=== PATIENT | male | born 1960 | race Caucasian/White ===

== ENCOUNTER 2023-09-07 16:24 | Emergency (ER) | payer MEDICARE, MEDICAID, SELFPAY ==
[2023-09-07 16:28] VITALS: PULSE 97; RESP 16; TEMP 36.6; O2SAT 92; BMI 18.3
[2023-09-07 16:40] VITALS: BP 110/62
--- NOTE | 2023-09-07 16:42 | ED_ITS ---
HPI - Fall General Chief Complaint: Head Injury Stated Complaint: Head Injury from fall Time Seen by Provider: 09/07/23 16:26 Source: caregiver Mode of arrival: Wheelchair Limitations: no limitations History of Present Illness HPI Narrative: Patient is a 62-year-old male with a history of spinal cord injury and developmental delay who is nonverbal brought in by his caregiver from the [facility] where he is a resident for evaluation of multiple falls today. Caregiver provides the entire history. He states that the patient is at his mental baseline. He does have a history of frequent falls as he has issues walking and with his balance. He had 2 falls earlier today where he was essentially lowered to the ground and had no evidence of injury. He was attempting to get on a bus when he fell backward onto concrete hitting his head. He had no loss of consciousness. Caregivers were concerned because the patient seemed less willing to ambulate after the injury. He has contractures of the extremities, he does not take blood thinners. Caregiver states he is at his mental baseline at this time and does not seem to be acting inappropriately. Related Data Allergies Allergy/AdvReac Type Severity Reaction Status Date / Time aspirin Allergy Verified 09/07/23 16:34 Review of Systems ROS Constitutional Denies: fever or chills Ears, nose, mouth, and throat Denies: nasal congestion Respiratory Denies: shortness of breath Gastrointestinal Denies: vomiting Neurological Reports: weakness in extremities and lack of coordination; Denies: behavioral changes Hematologic/Lymphatic Denies: easy bleeding Allergic/Immunologic Denies: hives Exam Narrative Exam Narrative: Gen.: Awake, alert, in no distress Head: Normocephalic, Small area of swelling to the left posterior scalp, no abrasions or lacerations noted. ENT: Moist mucous membranes; No evidence of facial injury or epistaxis Respiratory: No respiratory distress Back: Abrasion to the left thoracic back, no obvious deformity of the spine Gastrointestinal: Abdomen is soft, nondistended and nontender to palpation; Pelvis is stable Extremities: Arms and legs are contracted, no obvious injury Psych: Normal mood and affect Neuro: Patient chewing on a washcloth which is his baseline Skin: Warm, dry, intact Constitutional Vital Signs, click to edit/add: Last Vital Signs Temp 98 F 09/07/23 16:28 Pulse 97 H 09/07/23 16:28 Resp 16 09/07/23 16:28 BP 110/62 09/07/23 16:40 Pulse Ox 92 L 09/07/23 16:28 Course Vital Signs Vital signs: Vital Signs Temperature 98 F 09/07/23 16:28 Pulse Rate 97 H 09/07/23 16:28 Respiratory Rate 16 09/07/23 16:28 Pulse Oximetry 92 L 09/07/23 16:28 Temperature 98 F 09/07/23 16:28 Pulse Rate 97 H 09/07/23 16:28 Respiratory Rate 16 09/07/23 16:28 Blood Pressure 110/62 09/07/23 16:40 Pulse Oximetry 92 L 09/07/23 16:28 MDM - Fall MDM Narrative Medical decision making narrative: Patient sent for CTs of the head, C-spine, T-spine, L-spine as well as x-rays of the pelvis. These Show motion artifact but no evidence of acute abnormalities other than age-indeterminate fractures of T1 and T2 with vertebral height preserved. I discussed this with the patient's caregiver. He is requesting Motrin and Tylenol orders as needed for pain. Follow-up with PCP and return to the ER if symptoms change or worsen. Medical Records Attestation: I reviewed the patient's medical records. Imaging Data CT scan - head: Attestation: I have reviewed the pertinent imaging results. Radiologist's impression: ITS Impressions Cervical Spine CT 09/07/23 17:20 IMPRESSION: 1. No acute intracranial abnormalities within the limitations of the motion artifact. 2. T1 and T2 superior endplate compression fractures with mild height loss are age indeterminate, correlate clinically. 3. No other acute thoracic or lumbar spine abnormalities 4. No definite acute cervical spine abnormalities although the exam is essentially nondiagnostic due to the motion artifact. Consider repeat exam with clinical concern for cervical spine fracture. Electronically authenticated by: MARTY HANSEN Date: 09/07/2023 17:[address] 09/07/23 17:20 IMPRESSION: 1. No acute intracranial abnormalities within the limitations of the motion artifact. 2. T1 and T2 superior endplate compression fractures with mild height loss are age indeterminate, correlate clinically. 3. No other acute thoracic or lumbar spine abnormalities 4. No definite acute cervical spine abnormalities although the exam is essentially nondiagnostic due to the motion artifact. Consider repeat exam with clinical concern for cervical spine fracture. Electronically authenticated by: MARTY HANSEN Date: 09/07/2023 17:[address] 09/07/23 17:20 IMPRESSION: 1. No acute intracranial abnormalities within the limitations of the motion artifact. 2. T1 and T2 superior endplate compression fractures with mild height loss are age indeterminate, correlate clinically. 3. No other acute thoracic or lumbar spine abnormalities 4. No definite acute cervical spine abnormalities although the exam is essentially nondiagnostic due to the motion artifact. Consider repeat exam with clinical concern for cervical spine fracture. Electronically authenticated by: MARTY HANSEN Date: 09/07/2023 17:43 Pelvis X-Ray 09/07/23 17:20 IMPRESSION: No acute osseous abnormality. Electronically authenticated by: GERTRUDE RAM Date: 09/07/2023 17:[address] 09/07/23 17:20 IMPRESSION: 1. No acute intracranial abnormalities within the limitations of the motion artifact. 2. T1 and T2 superior endplate compression fractures with mild height loss are age indeterminate, correlate clinically. 3. No other acute thoracic or lumbar spine abnormalities 4. No definite acute cervical spine abnormalities although the exam is essentially nondiagnostic due to the motion artifact. Consider repeat exam with clinical concern for cervical spine fracture. Electronically authenticated by: MARTY HANSEN Date: 09/07/2023 17:43 Discharge Plan Discharge Chief Complaint: Head Injury Clinical Impression: Closed head injury, Compression fracture of thoracic vertebra, Fall Patient Disposition: Home, Self-Care Time of Disposition Decision: 18:01 Condition: Good Instructions: Vertebral Compression Fracture (ED), Head Injury (ED) Stand Alone Forms: Portal Instructions Referrals: ENOC VILLALPANDO [Primary Care Provider] - 1 week Discharge Date/Time: 09/07/23 18:15
--- NOTE | 2023-09-07 17:20 | CT_ITS ---
[address] [address] Patient Name: MICHAEL GUZMÁN MRN: [id number] date: 1960 Sex: M Assigned Patient Location: ER Current Patient Location: Accession/Order Number: [id number] Exam Date: 09/07/2023 17:00 Report Date: 09/07/2023 17:43 At the request of: ABNER BOSS Procedure: CT thoracic spine wo con EXAM: CT scan of the head without contrast. CT scan of the cervical spine without contrast. CT scan of the thoracic spine without contrast. CT scan of the lumbar spine without contrast. Dose reduction technique used: Automated exposure control and/or adjustment of the mA and/or kV according to patient size and/or use of iterative reconstruction technique. REASON FOR EXAM: Fall COMPARISON: None FINDINGS: HEAD: Motion artifact degrades image quality and reduces sensitivity of the exam. No intracranial hemorrhage, mass effect, midline shift, fractures or evidence of acute ischemic infarct. No hydrocephalus. Mild generalized cerebral and cerebellar volume loss. Paranasal sinuses and mastoid air cells are clear. C-SPINE: Motion artifact severely degrades image quality and reduces sensitivity of the exam. No displaced fractures or substantial malalignment. Cervical spine degenerative changes, likely with multilevel mild and moderate spinal canal stenoses. THORACIC SPINE: T1 and T2 superior endplate compression fractures with mild height loss. No other fractures, dislocations or acute malalignment of the thoracic spine. Degenerative changes in the thoracic spine without substantial spinal canal or neuroforaminal stenoses. Preserved intervertebral disc heights. LUMBAR SPINE: Motion artifact degrades image quality and reduces sensitivity of the exam. No fractures, dislocations or acute malalignment of the lumbar spine. Lumbar spine degenerative changes with multilevel bilateral mild neural foraminal stenoses. No high-grade neural foraminal stenoses. Multilevel mild spinal canal stenoses, worst at the L4-5 level where the stenosis is likely moderate. Remainder unremarkable. CT/CT thoracic spine wo con IMPRESSION: 1. No acute intracranial abnormalities within the limitations of the motion artifact. 2. T1 and T2 superior endplate compression fractures with mild height loss are age indeterminate, correlate clinically. 3. No other acute thoracic or lumbar spine abnormalities 4. No definite acute cervical spine abnormalities although the exam is essentially nondiagnostic due to the motion artifact. Consider repeat exam with clinical concern for cervical spine fracture. Electronically authenticated by: MARTY HANSEN Date: 09/07/2023 17:43
--- NOTE | 2023-09-07 17:20 | CT_ITS ---
[address] [address] Patient Name: MICHAEL GUZMÁN MRN: [id number] date: 1960 Sex: M Assigned Patient Location: ER Current Patient Location: Accession/Order Number: [id number] Exam Date: 09/07/2023 17:00 Report Date: 09/07/2023 17:43 At the request of: ABNER BOSS Procedure: CT head/brain wo con EXAM: CT scan of the head without contrast. CT scan of the cervical spine without contrast. CT scan of the thoracic spine without contrast. CT scan of the lumbar spine without contrast. Dose reduction technique used: Automated exposure control and/or adjustment of the mA and/or kV according to patient size and/or use of iterative reconstruction technique. REASON FOR EXAM: Fall COMPARISON: None FINDINGS: HEAD: Motion artifact degrades image quality and reduces sensitivity of the exam. No intracranial hemorrhage, mass effect, midline shift, fractures or evidence of acute ischemic infarct. No hydrocephalus. Mild generalized cerebral and cerebellar volume loss. Paranasal sinuses and mastoid air cells are clear. C-SPINE: Motion artifact severely degrades image quality and reduces sensitivity of the exam. No displaced fractures or substantial malalignment. Cervical spine degenerative changes, likely with multilevel mild and moderate spinal canal stenoses. THORACIC SPINE: T1 and T2 superior endplate compression fractures with mild height loss. No other fractures, dislocations or acute malalignment of the thoracic spine. Degenerative changes in the thoracic spine without substantial spinal canal or neuroforaminal stenoses. Preserved intervertebral disc heights. LUMBAR SPINE: Motion artifact degrades image quality and reduces sensitivity of the exam. No fractures, dislocations or acute malalignment of the lumbar spine. Lumbar spine degenerative changes with multilevel bilateral mild neural foraminal stenoses. No high-grade neural foraminal stenoses. Multilevel mild spinal canal stenoses, worst at the L4-5 level where the stenosis is likely moderate. Remainder unremarkable. CT/CT head/brain wo con IMPRESSION: 1. No acute intracranial abnormalities within the limitations of the motion artifact. 2. T1 and T2 superior endplate compression fractures with mild height loss are age indeterminate, correlate clinically. 3. No other acute thoracic or lumbar spine abnormalities 4. No definite acute cervical spine abnormalities although the exam is essentially nondiagnostic due to the motion artifact. Consider repeat exam with clinical concern for cervical spine fracture. Electronically authenticated by: MARTY HANSEN Date: 09/07/2023 17:43
--- NOTE | 2023-09-07 17:20 | CT_ITS ---
[address] [address] Patient Name: MICHAEL GUZMÁN MRN: [id number] date: 1960 Sex: M Assigned Patient Location: ER Current Patient Location: Accession/Order Number: [id number] Exam Date: 09/07/2023 17:00 Report Date: 09/07/2023 17:43 At the request of: ABNER BOSS Procedure: CT lumbar spine wo con EXAM: CT scan of the head without contrast. CT scan of the cervical spine without contrast. CT scan of the thoracic spine without contrast. CT scan of the lumbar spine without contrast. Dose reduction technique used: Automated exposure control and/or adjustment of the mA and/or kV according to patient size and/or use of iterative reconstruction technique. REASON FOR EXAM: Fall COMPARISON: None FINDINGS: HEAD: Motion artifact degrades image quality and reduces sensitivity of the exam. No intracranial hemorrhage, mass effect, midline shift, fractures or evidence of acute ischemic infarct. No hydrocephalus. Mild generalized cerebral and cerebellar volume loss. Paranasal sinuses and mastoid air cells are clear. C-SPINE: Motion artifact severely degrades image quality and reduces sensitivity of the exam. No displaced fractures or substantial malalignment. Cervical spine degenerative changes, likely with multilevel mild and moderate spinal canal stenoses. THORACIC SPINE: T1 and T2 superior endplate compression fractures with mild height loss. No other fractures, dislocations or acute malalignment of the thoracic spine. Degenerative changes in the thoracic spine without substantial spinal canal or neuroforaminal stenoses. Preserved intervertebral disc heights. LUMBAR SPINE: Motion artifact degrades image quality and reduces sensitivity of the exam. No fractures, dislocations or acute malalignment of the lumbar spine. Lumbar spine degenerative changes with multilevel bilateral mild neural foraminal stenoses. No high-grade neural foraminal stenoses. Multilevel mild spinal canal stenoses, worst at the L4-5 level where the stenosis is likely moderate. Remainder unremarkable. CT/CT lumbar spine wo con IMPRESSION: 1. No acute intracranial abnormalities within the limitations of the motion artifact. 2. T1 and T2 superior endplate compression fractures with mild height loss are age indeterminate, correlate clinically. 3. No other acute thoracic or lumbar spine abnormalities 4. No definite acute cervical spine abnormalities although the exam is essentially nondiagnostic due to the motion artifact. Consider repeat exam with clinical concern for cervical spine fracture. Electronically authenticated by: MARTY HANSEN Date: 09/07/2023 17:43
--- NOTE | 2023-09-07 17:20 | CT_ITS ---
[address] [address] Patient Name: MICHAEL GUZMÁN MRN: [id number] date: 1960 Sex: M Assigned Patient Location: ER Current Patient Location: Accession/Order Number: [id number] Exam Date: 09/07/2023 17:00 Report Date: 09/07/2023 17:43 At the request of: ABNER BOSS Procedure: CT cervical spine wo con EXAM: CT scan of the head without contrast. CT scan of the cervical spine without contrast. CT scan of the thoracic spine without contrast. CT scan of the lumbar spine without contrast. Dose reduction technique used: Automated exposure control and/or adjustment of the mA and/or kV according to patient size and/or use of iterative reconstruction technique. REASON FOR EXAM: Fall COMPARISON: None FINDINGS: HEAD: Motion artifact degrades image quality and reduces sensitivity of the exam. No intracranial hemorrhage, mass effect, midline shift, fractures or evidence of acute ischemic infarct. No hydrocephalus. Mild generalized cerebral and cerebellar volume loss. Paranasal sinuses and mastoid air cells are clear. C-SPINE: Motion artifact severely degrades image quality and reduces sensitivity of the exam. No displaced fractures or substantial malalignment. Cervical spine degenerative changes, likely with multilevel mild and moderate spinal canal stenoses. THORACIC SPINE: T1 and T2 superior endplate compression fractures with mild height loss. No other fractures, dislocations or acute malalignment of the thoracic spine. Degenerative changes in the thoracic spine without substantial spinal canal or neuroforaminal stenoses. Preserved intervertebral disc heights. LUMBAR SPINE: Motion artifact degrades image quality and reduces sensitivity of the exam. No fractures, dislocations or acute malalignment of the lumbar spine. Lumbar spine degenerative changes with multilevel bilateral mild neural foraminal stenoses. No high-grade neural foraminal stenoses. Multilevel mild spinal canal stenoses, worst at the L4-5 level where the stenosis is likely moderate. Remainder unremarkable. CT/CT cervical spine wo con IMPRESSION: 1. No acute intracranial abnormalities within the limitations of the motion artifact. 2. T1 and T2 superior endplate compression fractures with mild height loss are age indeterminate, correlate clinically. 3. No other acute thoracic or lumbar spine abnormalities 4. No definite acute cervical spine abnormalities although the exam is essentially nondiagnostic due to the motion artifact. Consider repeat exam with clinical concern for cervical spine fracture. Electronically authenticated by: MARTY HANSEN Date: 09/07/2023 17:43
--- NOTE | 2023-09-07 17:20 | XR_ITS ---
[place] [id number] Patient Name: MICHAEL GUZMÁN MRN: [id number] date: 1960 Sex: M Assigned Patient Location: ER Current Patient Location: ER Accession/Order Number: [id number] Exam Date: 09/07/2023 17:00 Report Date: 09/07/2023 17:52 At the request of: ABNER BOSS Procedure: XR pelvis 1-2V STUDY: XR pelvis 1-2V, [id number] HISTORY: Fall COMPARISON: None FINDINGS: No acute fracture, dislocation, or suspicious osseous lesion. Dysplasia of the right hip. Mild osteoarthritis of both hips. XR/XR pelvis 1-2V IMPRESSION: No acute osseous abnormality. Electronically authenticated by: GERTRUDE RAM Date: 09/07/2023 17:52
== END 2023-09-07 18:15 | disposition home or self-care (01) ==
PROVIDERS: Emergency Provider Emergency Medicine; PCP Family Medicine
DX: S09.8XXA Other specified injuries of head, initial encounter (principal); S22.010A Wedge compression fracture of first thoracic vertebra, initial encounter for closed fracture; S22.020A Wedge compression fracture of second thoracic vertebra, initial encounter for closed fracture; W19.XXXA Unspecified fall, initial encounter; Z91.81 History of falling; Z87.828 Personal history of other (healed) physical injury and trauma
CPT/HCPCS: 70450; 72125; 72128; 72131; 72170; 99284

== ENCOUNTER 2023-11-21 16:16 | Emergency (ER) | payer MEDICARE, MEDICAID, SELFPAY ==
[2023-11-21] VITALS (25 sets, daily range): BP systolic 90–119; BP diastolic 54–73; PULSE 57–82; TEMP 36.3; O2SAT 90–97; BMI 17.6
--- NOTE | 2023-11-21 16:22 | XR_ITS ---
[address] [address] Patient Name: MICHAEL GUZMÁN MRN: [id number] date: 1960 Sex: M Assigned Patient Location: ER Current Patient Location: ER Accession/Order Number: [id number] Exam Date: 11/21/2023 16:45 Report Date: 11/21/2023 17:07 At the request of: ABNER BOSS Procedure: XR chest 1V EXAMINATION: XR chest 1V, , 11/21/2023 4:45 PM EDT INDICATION: Seizure HISTORY: Ordering Provider Reason for Exam: Seizure Technologist Note: Additional: COMPARISON: None. TECHNIQUE: Chest x-ray: One view. FINDINGS: No pneumothorax, pleural effusion or focal airspace consolidation. Heart is normal in size. Bony thorax is unremarkable. XR/XR chest 1V IMPRESSION: No acute cardiopulmonary process. Electronically authenticated by: YRIS ORTIZ Date: 11/21/2023 17:07
--- NOTE | 2023-11-21 16:22 | ECG_ITS ---
[facility] Test Date: 2023-11-21 Pat Name: MICHAEL GUZMÁN Department: Room: - Gender: Male [employer] Dis[employer]: : 1960 Requested By: ENOC VILLALPANDO Order Number: [id number] Reading MD: NACHO GREEN Measurements Intervals [place] Rate: 72 P: 77 WA: 120 QRS: -15 QRSD: 78 T: 68 QT: 390 QTc: 413 Interpretive Statements 1100 Sinus rhythm 9110 normal ECG No previous ECG available for comparison Electronically Signed On 11-21-2023 18:08:01 EDT by NACHO GREEN
--- NOTE | 2023-11-21 16:24 | CT_ITS ---
The [address] [address] Patient Name: MICHAEL GUZMÁN MRN: [id number] date: 1960 Sex: M Assigned Patient Location: ER Current Patient Location: ED.[facility] Accession/Order Number: [id number] Exam Date: 11/21/2023 16:48 Report Date: 11/21/2023 18:48 At the request of: ABNER BOSS Procedure: CT head/brain wo con HEAD CT WITHOUT CONTRAST, 11/21/2023 4:48 PM EDT: COMPARISON: CT scan of the head, 09/07/2023 CLINICAL HISTORY: Seizure , MRDD. In [facility], unwitnessed seizure like activity for 30-45 seconds with torso and arms shaking. History of seizure. TECHNIQUE: 3 mm axial images performed through the head without contrast. 3 mm sagittal and coronal MPR reconstructions performed. Dose reduction techniques were achieved by using automated exposure control and/or adjustment of mA and/or kV according to patient size and/or use of iterative reconstruction technique. FINDINGS: Motion obscuring some details. Allowing for this limitation, no gross intracranial abnormality identified. The ventricles are normal in size, shape, and position. Visualized paranasal sinuses and mastoid air cells also obscured by motion but clear. CT/CT head/brain wo con IMPRESSION: Allowing for the degree of motion, no acute gross intracranial abnormality identified. Electronically authenticated by: Maria R CATALAN Date: 11/21/2023 18:48
--- NOTE | 2023-11-21 16:25 | ED_ITS ---
HPI HPI - General Adult General Chief complaint: Seizure Stated complaint: seizure Time Seen by Provider: 11/21/23 16:21 Mode of arrival: ambulance History of Present Illness HPI narrative: Patient is a 63-year-old male with a history of developmental delay who presents to the ER from a [place] [facility] for evaluation of possible seizure activity. History is provided by EMS only, patient is nonverbal and unable to communicate. Apparently seizure-like activity was noted at the [place] [facility] where he is a resident, no report was called to this emergency department from staff so our entire history is reliant upon EMS secondhand information. Patient apparently has a history of seizure disorder but has not had a seizure in over a year. He is not currently on any medication for this. He had no falls or injuries. He had observed seizure-like activity While in a recliner and was noted to have shaking of the upper extremities with contracture of the arms as well as his eyes rolling back in his head. He is grinding his teeth which is apparently not a normal behavior for him. No recent illness reported by EMS, no seizure activity reported by EMS while The patient has been in their care. Related Data Allergies Allergy/AdvReac Type Severity Reaction Status Date / Time aspirin Allergy Verified 11/21/23 16:21 Opioid HPI Opioid Management Most Recent Opioid Data: No Data to Display Review of Systems ROS Status of ROS unobtainable due to medical condition and unobtainable due to mental status Exam Narrative Exam Narrative: Gen.: Thin, nonverbal developmentally delayed male with contractures of the upper extremities, grinding his teeth. Patient responds to some commands to open his mouth, he is not combative Head: Normocephalic, atraumatic ENT: Moist mucous membranes, No dental injury noted Respiratory: No respiratory distress, lungs clear bilaterally Cardio: Regular rate and rhythm Extremities: Bilateral upper extremities are contracted Psych: Normal mood and affect Neuro: No focal neuro deficit Skin: Warm, dry, intact Constitutional Vital Signs, click to edit/add: Last Vital Signs Temp 97.4 F L 11/21/23 17:36 Pulse 78 11/21/23 18:02 Resp 21 H 11/21/23 18:00 BP 115/73 11/21/23 17:24 Pulse Ox 96 11/21/23 18:02 O2 Del Method Room Air 11/21/23 16:21 Course Vital Signs Vital signs: Vital Signs Pulse Rate 77 11/21/23 16:21 Respiratory Rate 18 11/21/23 16:21 Blood Pressure 117/54 11/21/23 16:21 Pulse Oximetry 94 L 11/21/23 16:21 Oxygen Delivery Method Room Air 11/21/23 16:21 Temperature 97.4 F L 11/21/23 17:36 Pulse Rate 78 11/21/23 18:02 Respiratory Rate 21 H 11/21/23 18:00 Blood Pressure 115/73 11/21/23 17:24 Pulse Oximetry 96 11/21/23 18:02 Oxygen Delivery Method Room Air 11/21/23 16:21 Medical Decision Making MDM Narrative Medical decision making narrative: On arrival to the ER, patient was not observed to have any seizure-like activity. He has no physical exam findings concerning for major injury from seizure activity. CT of the brain, chest x-ray, lab studies are within normal limits. Respiratory testing was performed. Patient has stable vital signs, he was given IV Keppra as a precaution. Follow-up with PCP and neurology as indicated and return to the ER if symptoms change or worsen. Medical Records Medical records reviewed: Yes I reviewed the patient's medical records Lab Data Lab results reviewed: Yes I reviewed the patient's lab results Labs: Lab Results 11/21/23 11/21/23 Range/Units 16:34 18:05 WBC 7.2 (4.0-11.0) 10^3/uL RBC 4.43 L (4.70-6.10) 10^6/uL Hgb 13.7 L (14.0-18.0) g/dL Hct 43.5 (42.0-54.0) % MCV 98.2 H (80.0-94.0) fL MCH 30.9 (25.9-34.0) pg MCHC 31.5 (29.9-35.2) g/dL RDW 12.8 (11.0-15.0) % Plt Count 221 (150-450) 10^3/uL MPV 9.7 (9.5-13.5) fL Neut % (Auto) 71.2 (43.0-75.0) % Lymph % (Auto) 18.4 L (20.5-60.0) % Piatt % (Auto) 8.5 (1.7-12.0) % Eos % (Auto) 1.1 (0.9-7.0) % Baso % (Auto) 0.4 (0.2-2.0) % Neut # (Auto) 5.1 (1.4-6.5) 10^3/uL Lymph # (Auto) 1.3 (1.2-3.8) 10^3/uL Piatt # (Auto) 0.6 (0.3-0.8) 10^3/uL Eos # (Auto) 0.1 (0.0-0.7) 10^3/uL Baso # (Auto) 0.0 (0.0-0.1) 10^3/uL Abs Immat Gran (auto) 0.03 (0.00-0.03) 10^3/uL Imm/Tot Granulo (auto) 0.4 (0.0-0.5) % Sodium 144 (136-145) mmol/L Potassium 4.1 (3.5-5.1) mmol/L Chloride 103 (98-107) mmol/L Carbon Dioxide 34.5 H (21.0-32.0) mmol/L Anion Gap 10.6 BUN 29.0 H (7.0-18.0) mg/dL Creatinine 0.70 (0.70-1.30) mg/dL Est GFR ( Amer) >60 (>=60) Est GFR (Non-Af Amer) >60 (>=60) BUN/Creatinine Ratio 41.4 Glucose 92 (74-106) mg/dL Lactate 2.5 H* (0.4-2.0) mmol/L Calcium 9.6 (8.5-10.1) mg/dL Total Bilirubin 0.4 (0.2-1.0) mg/dL AST 23 (15-37) U/L ALT 32 (16-63) U/L Alkaline Phosphatase 72 (46-116) U/L Troponin I High Sens 4.6 (4.0-76.1) pg/mL Total Protein 7.1 (6.4-8.2) g/dL Albumin 3.3 L (3.4-5.0) g/dL Globulin 3.8 g/dL Albumin/Globulin Ratio 0.9 TSH 1.996 (0.358-3.740) uIU/mL Influenza Type A Ag Negative Influenza Type B Ag Negative RSV Antigen Not detected (NOT DETECTE) SARS-CoV-2 Ag (CV2AG) Negative (NEGATIVE) Streptococcus Screen Negative Imaging Data CT scan - head: Attestation: I have reviewed the pertinent imaging results. Radiologist's impression: ITS Impressions Chest X-Ray 11/21/23 16:22 IMPRESSION: No acute cardiopulmonary process. Electronically authenticated by: YRIS ORTIZ Date: 11/21/2023 17:[address] 11/21/23 16:24 IMPRESSION: Allowing for the degree of motion, no acute gross intracranial abnormality identified. Electronically authenticated by: Maria R CATALAN Date: 11/21/2023 18:48 ECG Data Attestation: I personally reviewed and interpreted this ECG as follows: (Normal sinus rhythm at a rate of 72, no acute ST elevation or ectopy. EKG reviewed by attending physician) Discharge Plan Discharge Stand Alone Forms: Portal Instructions Chief Complaint: Seizure Clinical Impression: Observed seizure-like activity Patient Disposition: Home, Self-Care Time of Disposition Decision: 18:41 Condition: Good Print Language: Czech Instructions: Recurrent Seizures in Adults (ED) Referrals: ENOC VILLALPANDO [Primary Care Provider] - 1 week
[2023-11-21] MEDS: 0.9 % SODIUM CHLORIDE 1,000 ML 999 ML IV (16:33)
[2023-11-21 16:41] LABS: Basophils Percent Auto 0.4 % (0.2-2.0); Eosinophils Absolute Auto 0.1 10^3/uL (0.0-0.7); Eosinophils Percent Auto 1.1 % (0.9-7.0); Hematocrit 43.5 % (42.0-54.0); Hemoglobin 13.7 g/dL (14.0-18.0); Immature Granulocytes Abs Auto 0.03 10^3/uL (0.00-0.03); Immature Granulocytes Pct Auto 0.4 % (0.0-0.5); Lymphocytes Absolute Auto 1.3 10^3/uL (1.2-3.8); Lymphocytes Percent Auto 18.4 % (20.5-60.0); Mean Corpuscular HGB Conc 31.5 g/dL (29.9-35.2); Mean Corpuscular Hemoglobin 30.9 pg (25.9-34.0); Mean Corpuscular Volume 98.2 fL (80.0-94.0); Mean Platelet Volume 9.7 fL (9.5-13.5); Monocytes Absolute Auto 0.6 10^3/uL (0.3-0.8); Monocytes Percent Auto 8.5 % (1.7-12.0); Neutrophils Absolute Auto 5.1 10^3/uL (1.4-6.5); Neutrophils Percent Auto 71.2 % (43.0-75.0); Platelet Count 221 10^3/uL (150-450); Red Blood Count 4.43 10^6/uL (4.70-6.10); Red Cell Distribution Width 12.8 % (11.0-15.0); White Blood Count 7.2 10^3/uL (4.0-11.0)
[2023-11-21] MEDS: LEVETIRACETAM 1,000 MG in 0.9 % SODIUM CHLORIDE 100 ML 440 MG IV (17:08)
[2023-11-21 17:10] LABS: Alanine Aminotransferase 32 U/L (16-63); Albumin Globulin Ratio 0.9; Albumin Level 3.3 g/dL (3.4-5.0); Alkaline Phosphatase 72 U/L (46-116); Anion Gap 10.6; Aspartate Amino Transferase 23 U/L (15-37); BUN Creatinine Ratio 41.4; Bilirubin Total 0.4 mg/dL (0.2-1.0); Calcium 9.6 mg/dL (8.5-10.1); Carbon Dioxide 34.5 mmol/L (21.0-32.0); Chloride 103 mmol/L (98-107); Estimated GFR (African America >60 (>=60); Estimated GFR (Non-African Ame >60 (>=60); Globulin 3.8 g/dL; Glucose 92 mg/dL (74-106); Potassium 4.1 mmol/L (3.5-5.1); Sodium 144 mmol/L (136-145); Thyroid Stimulating Hormone 1.996 uIU/mL (0.358-3.740); Total Protein 7.1 g/dL (6.4-8.2); Troponin I High Sensitivity 4.6 pg/mL (4.0-76.1)
[2023-11-21 17:11] LABS: Lactate/Lactic Acid 2.5 mmol/L (0.4-2.0)
[2023-11-21 18:36] LABS: Influenza Virus A Antigen Negative; Influenza Virus B Antigen Negative; Internal Control Within Normal Limits; Respiratory Syncytial Virus Not Detected (NOT DETECTE); SARS-CoV-2 Ag NEGATIVE (NEGATIVE); Strep A Antigen Screen Negative
== END 2023-11-21 19:38 | disposition home or self-care (01) ==
PROVIDERS: Physician Assistant; Emergency Provider Emergency Medicine; PCP Family Medicine
DX: R56.9 Unspecified convulsions (principal); Z20.822 Contact with and (suspected) exposure to COVID-19
CPT/HCPCS: 36415; 70450; 71045; 80053; 82948; 83605; 84443; 84484; 85025; 87070; 87420; 87804; 87811; 87880; 93005; 96365; 99285

== ENCOUNTER 2024-01-24 15:00 | Outpatient (OUT) | payer MEDICARE, MEDICAID, SELFPAY ==
[2024-01-24 15:46] LABS: Phenytoin Dilantin 5.2 ug/mL (10.0-20.0)
== END 2024-01-24 15:01 | disposition home or self-care (01) ==
LOC: LAB 15:00
PROVIDERS: PCP Family Medicine; Visit Provider Psychiatry & Neurology Neurology
DX: R56.9 Unspecified convulsions (principal); F73 Profound intellectual disabilities
CPT/HCPCS: 36415; 80185

== ENCOUNTER 2024-07-09 16:35 | Emergency (ER) | payer MEDICARE, MEDICAID, SELFPAY ==
[2024-07-09 16:38] VITALS: BP 123/85; PULSE 98; TEMP 37.1; O2SAT 96; BMI 12.9
--- NOTE | 2024-07-09 16:53 | ED_ITS ---
HPI HPI - General Adult General Chief complaint: Urogenital-Male Stated complaint: not urinating Time Seen by Provider: 07/09/24 16:38 Source: patient and caregiver Mode of arrival: ambulance Limitations: no limitations History of Present Illness HPI narrative: Patient presented to the emergency department for evaluation of urinary retention. Per home the patient has had, he has had no urinary output since yesterday. Home care nurse tried to cath him today and got no urine out. He said he just had cardiac arrest, CPR, skull fracture and has been at the senior living since being [facility] from [facility]. No urine output since last night. Related Data Home Medications ?Medication ?Instructions ?Recorded ?Confirmed acetaminophen 325 mg tablet mg 11/21/23 ascorbic acid (vitamin C) 500 mg 11/21/23 tablet cholecalciferol (vitamin D3) 25 11/21/23 mcg (1,000 unit) tablet escitalopram oxalate 5 mg tablet mg 11/21/23 ibuprofen 400 mg tablet mg 11/21/23 polyethylene glycol 3350 17 g 11/21/23 gram/dose oral powder Allergies Allergy/AdvReac Type Severity Reaction Status Date / Time aspirin Allergy Verified 11/21/23 16:21 Opioid HPI Opioid Management Most Recent Opioid Data: No Data to Display Review of Systems ROS Narrative Negative unless otherwise stated in the HPI, report given by nursing staff, EMS, patient is unable to secondary to baseline neurologic conditions no Exam Narrative Exam Narrative: General: NAD, alert, baseline neurodeficits status post skull fracture, CPR Abdomen: Soft, non distended, patient does appear to wince when palpating suprapubic area Constitutional Vital Signs, click to edit/add: Last Vital Signs Temp 98.8 F 07/09/24 16:38 Pulse 98 H 07/09/24 16:38 Resp 18 07/09/24 16:38 BP 123/85 07/09/24 16:38 Pulse Ox 96 07/09/24 16:38 O2 Del Method Room Air 07/09/24 16:38 Course Vital Signs Vital signs: Vital Signs Temperature 98.8 F 07/09/24 16:38 Pulse Rate 98 H 07/09/24 16:38 Respiratory Rate 18 07/09/24 16:38 Blood Pressure 123/85 07/09/24 16:38 Pulse Oximetry 96 07/09/24 16:38 Oxygen Delivery Method Room Air 07/09/24 16:38 Temperature 98.8 F 07/09/24 16:38 Pulse Rate 98 H 07/09/24 16:38 Respiratory Rate 18 07/09/24 16:38 Blood Pressure 123/85 07/09/24 16:38 Pulse Oximetry 96 07/09/24 16:38 Oxygen Delivery Method Room Air 07/09/24 16:38 Medical Decision Making MDM Narrative Medical decision making narrative: Bladder scan was done, greater than 370 mL on bladder scan. Najera catheter was placed, difficult, kept coiling, nursing staff was ultimately able to get Najera catheter in place, 600 cc of urine immediate return Advanced guidance has been given. Vss, pex is benign at this time. Pt to fu with pcp 1-2 days for reeval, rter should sx worsen, persist or become worrysome in any way. All incidental laboratory studies, EKG, radiologic findings have been noted and discussed with patient. Patient was reevaluated with a benign exam at this time. Facility expressed understanding and agreement with plan of care at this time. Will fu as planned. Pt stable for discharge. Discharge Plan Discharge Chief Complaint: Urogenital-Male Clinical Impression: Acute urinary retention, Najera catheter in place Patient Disposition: Home, Self-Care Time of Disposition Decision: 16:57 Prescriptions / Home Meds: No Action acetaminophen 325 mg tablet ascorbic acid (vitamin C) 500 mg tablet ibuprofen 400 mg tablet polyethylene glycol 3350 17 gram/dose powder escitalopram oxalate 5 mg tablet cholecalciferol (vitamin D3) 25 mcg (1,000 unit) tablet Print Language: Cuban Instructions: Urinary Retention in Men (ED), Najera Catheter Placement and Care (ED), Bladder Management Program After Spinal Cord Injury (ED) Additional Instructions: Follow-up with your PCP in the next 1 to 2 days. Return to the emergency department should symptoms worsen or become worrisome in any way. Follow-up with urology as discussed with facility Referrals: ENOC VILLALPANDO [Primary Care Provider] - 1 week
[2024-07-09 18:49] VITALS: BP 127/73; PULSE 84; O2SAT 100
== END 2024-07-09 18:50 | disposition home or self-care (01) ==
PROVIDERS: Emergency Provider Emergency Medicine; PCP Family Medicine
DX: R33.9 Retention of urine, unspecified (principal); Z86.74 Personal history of sudden cardiac arrest
CPT/HCPCS: 51702; 99284

== ENCOUNTER 2024-09-16 16:17 | Emergency (ER) | payer MEDICARE, MEDICAID, SELFPAY ==
[2024-09-16] VITALS (12 sets, daily range): BP systolic 84–172; BP diastolic 52–132; PULSE 76–183; TEMP 37.1; O2SAT 95–98; BMI 24.2
--- NOTE | 2024-09-16 16:28 | ECG_ITS ---
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
--- NOTE | 2024-09-16 16:32 | ED.GENADUL1 ---
HPI HPI - General Adult General Chief complaint: Seizure Stated complaint: SEIZURES Time Seen by Provider: 09/16/24 16:25 Source: patient Mode of arrival: ambulance Limitations: no limitations History of Present Illness HPI narrative: Patient is a 63-year-old male who presents to the emergency department by ambulance from the [facility] where he is a resident for evaluation of seizure activity increasing throughout the day. Patient is nonverbal, profoundly developmentally delayed and is well-known to this emergency department. He has been seen here previously for seizure disorder. Per his medication list he was prescribed phenytoin and Keppra today. [facility] reported that the patient was having twitching which is consistent with his seizures. No further history Related Data Home Medications ?Medication ?Instructions ?Recorded ?Confirmed acetaminophen 325 mg tablet 650 mg feeding tube Q6H PRN fever 11/21/23 09/16/24 or pain ascorbic acid (vitamin C) 500 mg 500 mg feeding tube DAILY 11/21/23 09/16/24 tablet cholecalciferol (vitamin D3) 25 1,000 unit feeding tube DAILY 11/21/23 09/16/24 mcg (1,000 unit) tablet escitalopram oxalate 5 mg tablet 5 mg PO DAILY 11/21/23 09/16/24 ibuprofen 400 mg tablet 400 mg feeding tube Q8H PRN fever 11/21/23 09/16/24 or pain polyethylene glycol 3350 17 17 g PO DAILY 11/21/23 09/16/24 gram/dose oral powder alfuzosin 10 mg tablet,extended 10 mg PO DAILY 09/16/24 09/16/24 release 24 hr cefadroxil 500 mg capsule 500 mg feeding tube DAILY 09/16/24 09/16/24 lansoprazole 30 mg capsule,delayed 30 mg feeding tube DAILY 09/16/24 09/16/24 release levetiracetam 100 mg/mL oral 1,000 mg feeding tube Q12H 09/16/24 09/16/24 solution Allergies Allergy/AdvReac Type Severity Reaction Status Date / Time aspirin Allergy Verified 11/21/23 16:21 Opioid HPI Opioid Management Most Recent Opioid Data: No Data to Display Review of Systems ROS Status of ROS unobtainable due to medical condition and unobtainable due to mental status PFSH PFSH Social History Little interest or pleasure in doing things: not at all Feeling down, depressed, or hopeless: not at all Exam Narrative Exam Narrative: Gen.: Awake, alert, in no distress Head: Normocephalic, atraumatic ENT: Moist mucous membranes, no dental injury noted Respiratory: No respiratory distress, lungs clear bilaterally Cardio: Regular rate and rhythm Gastrointestinal: Abdomen is soft, nondistended and nontender to palpation Extremities: Moves extremities equally, no injuries noted Psych: Developmentally delayed, nonverbal Neuro: Patient looking to the left, mild twitching noted Skin: Warm, dry, intact Constitutional Vital Signs, click to edit/add: Last Vital Signs Temp 98.7 F 09/16/24 16:23 Pulse 82 09/16/24 18:56 Resp 17 09/16/24 18:56 BP 97/53 09/16/24 18:56 Pulse Ox 96 09/16/24 18:56 O2 Del Method Room Air 09/16/24 16:23 Course Vital Signs Vital signs: Vital Signs Temperature 98.7 F 09/16/24 16:23 Pulse Rate 108 H 09/16/24 16:23 Respiratory Rate 18 09/16/24 16:23 Blood Pressure 144/88 H 09/16/24 16:23 Pulse Oximetry 98 09/16/24 16:23 Oxygen Delivery Method Room Air 09/16/24 16:23 Temperature 98.7 F 09/16/24 16:23 Pulse Rate 82 09/16/24 18:56 Respiratory Rate 17 09/16/24 18:56 Blood Pressure 97/53 09/16/24 18:56 Pulse Oximetry 96 09/16/24 18:56 Oxygen Delivery Method Room Air 09/16/24 16:23 Medical Decision Making MDM Narrative Medical decision making narrative: Patient's medication list from the pharmacy shows that he was prescribed both phenytoin and Keppra today, however the caregiver at bedside states that he was taken off of the phenytoin and is only taking Keppra currently. He was given a bolus dose of Dilantin and Keppra in the ER. Vital signs are unremarkable, patient was treated with IV fluids and Ativan and is relaxing comfortably on reevaluation, caregiver states he is about back to his baseline. Labs with no significant abnormalities other than elevated lactic acid which has resolved. They are encouraged to continue his regular medications as prescribed, Keppra level is pending is a send out. Follow-up with neurology and return to the ER if symptoms change or worsen SUPERVISED APC VISIT, PHYSICIAN ATTESTATION: Based on the medical record the care appears appropriate. ? Medical Records Medical records reviewed: Yes I reviewed the patient's medical records Lab Data Lab results reviewed: Yes I reviewed the patient's lab results Labs: Lab Results 09/16/24 09/16/24 Range/Units 16:57 18:56 WBC 12.4 H (4.0-11.0) 10^3/uL RBC 4.07 L (4.70-6.10) 10^6/uL Hgb 12.6 L (14.0-18.0) g/dL Hct 38.6 L (42.0-54.0) % MCV 94.8 H (80.0-94.0) fL MCH 31.0 (25.9-34.0) pg MCHC 32.6 (29.9-35.2) g/dL RDW 12.6 (11.0-15.0) % Plt Count 271 (150-450) 10^3/uL MPV 9.8 (9.5-13.5) fL Neut % (Auto) 83.1 H (43.0-75.0) % Lymph % (Auto) 9.3 L (20.5-60.0) % Newberry % (Auto) 6.2 (1.7-12.0) % Eos % (Auto) 0.9 (0.9-7.0) % Baso % (Auto) 0.2 (0.2-2.0) % Neut # (Auto) 10.3 H (1.4-6.5) 10^3/uL Lymph # (Auto) 1.2 (1.2-3.8) 10^3/uL Newberry # (Auto) 0.8 (0.3-0.8) 10^3/uL Eos # (Auto) 0.1 (0.0-0.7) 10^3/uL Baso # (Auto) 0.0 (0.0-0.1) 10^3/uL Abs Immat Gran (auto) 0.04 H (0.00-0.03) 10^3/uL Imm/Tot Granulo (auto) 0.3 (0.0-0.5) % PT 10.7 (9.0-11.6) sec INR 1.01 Sodium 137 (136-145) mmol/L Potassium 3.9 (3.5-5.1) mmol/L Chloride 100 (98-107) mmol/L Carbon Dioxide 32.1 H (21.0-32.0) mmol/L Anion Gap 8.8 BUN 18.0 (7.0-18.0) mg/dL Creatinine 0.73 (0.70-1.30) mg/dL Est GFR ( Amer) >60 (>=60 mL/min/1.73m^2) Est GFR (Non-Af Amer) >60 (>=60 mL/min/1.73m^2) BUN/Creatinine Ratio 24.7 Glucose 109 H (74-106) mg/dL Lactate 2.8 H* 1.2 (0.4-2.0) mmol/L Calcium 9.5 (8.5-10.1) mg/dL Magnesium 2.3 (1.8-2.4) mg/dL Total Bilirubin 0.3 (0.2-1.0) mg/dL AST 23 (15-37) U/L ALT 24 (16-63) U/L Alkaline Phosphatase 88 (46-116) U/L Troponin I High Sens 5.6 (4.0-76.1) pg/mL Total Protein 7.2 (6.4-8.2) g/dL Albumin 2.9 L (3.4-5.0) g/dL Globulin 4.3 g/dL Albumin/Globulin Ratio 0.7 TSH 0.945 (0.358-3.740) uIU/mL Phenytoin 0.7 L (10.0-20.0) ug/mL ECG Data Attestation: I personally reviewed and interpreted this ECG as follows: (Eugenio normal sinus rhythm at a rate of 94, no acute ST elevation, no ectopy. EKG reviewed by attending physician. Artifact noted.) Discharge Plan Discharge Chief Complaint: Seizure Clinical Impression: Observed seizure-like activity Patient Disposition: Home, Self-Care Time of Disposition Decision: 19:50 Condition: Good Prescriptions / Home Meds: No Action acetaminophen 325 mg tablet 650 mg feeding tube Q6H PRN (Reason: fever or pain) ascorbic acid (vitamin C) 500 mg tablet 500 mg feeding tube DAILY ibuprofen 400 mg tablet 400 mg feeding tube Q8H PRN (Reason: fever or pain) polyethylene glycol 3350 17 gram/dose powder 17 g PO DAILY escitalopram oxalate 5 mg tablet 5 mg PO DAILY cholecalciferol (vitamin D3) 25 mcg (1,000 unit) tablet 1,000 unit feeding tube DAILY alfuzosin 10 mg tablet extended release 24 hr 10 mg PO DAILY cefadroxil 500 mg capsule 500 mg feeding tube DAILY lansoprazole 30 mg capsule,delayed release(DR/EC) 30 mg feeding tube DAILY levetiracetam 100 mg/mL solution 1,000 mg feeding tube Q12H Print Language: Kazakh Instructions: Recurrent Seizures in Adults (ED) Referrals: ENOC VILLALPANDO [Primary Care Provider] - 1 week
[2024-09-16 17:06] LABS: Basophils Percent Auto 0.2 % (0.2-2.0); Eosinophils Absolute Auto 0.1 10^3/uL (0.0-0.7); Eosinophils Percent Auto 0.9 % (0.9-7.0); Hematocrit 38.6 % (42.0-54.0); Hemoglobin 12.6 g/dL (14.0-18.0); Immature Granulocytes Abs Auto 0.04 10^3/uL (0.00-0.03); Immature Granulocytes Pct Auto 0.3 % (0.0-0.5); Lymphocytes Absolute Auto 1.2 10^3/uL (1.2-3.8); Lymphocytes Percent Auto 9.3 % (20.5-60.0); Mean Corpuscular HGB Conc 32.6 g/dL (29.9-35.2); Mean Corpuscular Volume 94.8 fL (80.0-94.0); Mean Platelet Volume 9.8 fL (9.5-13.5); Monocytes Absolute Auto 0.8 10^3/uL (0.3-0.8); Monocytes Percent Auto 6.2 % (1.7-12.0); Neutrophils Absolute Auto 10.3 10^3/uL (1.4-6.5); Neutrophils Percent Auto 83.1 % (43.0-75.0); Platelet Count 271 10^3/uL (150-450); Red Blood Count 4.07 10^6/uL (4.70-6.10); Red Cell Distribution Width 12.6 % (11.0-15.0); White Blood Count 12.4 10^3/uL (4.0-11.0)
[2024-09-16] MEDS: 0.9 % SODIUM CHLORIDE 1,000 ML 999 ML IV (17:09)
[2024-09-16] MEDS: LORAZEPAM 2 MG/ML VIAL 1 MG IV (17:10)
[2024-09-16] MEDS: LEVETIRACETAM 1,000 MG in 0.9 % SODIUM CHLORIDE 100 ML 440 MG IV (17:12)
[2024-09-16 17:23] LABS: INR 1.01; Prothrombin Time 10.7 sec (9.0-11.6)
[2024-09-16 17:25] LABS: Phenytoin Dilantin 0.7 ug/mL (10.0-20.0)
[2024-09-16 17:38] LABS: Alanine Aminotransferase 24 U/L (16-63); Albumin Globulin Ratio 0.7; Albumin Level 2.9 g/dL (3.4-5.0); Alkaline Phosphatase 88 U/L (46-116); Anion Gap 8.8; Aspartate Amino Transferase 23 U/L (15-37); BUN Creatinine Ratio 24.7; Bilirubin Total 0.3 mg/dL (0.2-1.0); Calcium 9.5 mg/dL (8.5-10.1); Carbon Dioxide 32.1 mmol/L (21.0-32.0); Chloride 100 mmol/L (98-107); Estimated GFR (African America >60 (>=60 mL/min/1.73m^2); Estimated GFR (Non-African Ame >60 (>=60 mL/min/1.73m^2); Globulin 4.3 g/dL; Glucose 109 mg/dL (74-106); Magnesium 2.3 mg/dL (1.8-2.4); Potassium 3.9 mmol/L (3.5-5.1); Sodium 137 mmol/L (136-145); Thyroid Stimulating Hormone 0.945 uIU/mL (0.358-3.740); Total Protein 7.2 g/dL (6.4-8.2); Troponin I High Sensitivity 5.6 pg/mL (4.0-76.1)
[2024-09-16 17:42] LABS: Lactate/Lactic Acid 2.8 mmol/L (0.4-2.0)
[2024-09-16] MEDS: PHENYTOIN SODIUM IV (18:24)
[2024-09-16] MEDS: SODIUM CHLORIDE 0.9% IV (18:24)
[2024-09-16 19:23] LABS: Lactate/Lactic Acid 1.2 mmol/L (0.4-2.0)
[2024-09-20 17:08] LABS: Levetiracetam (Keppra), S 45.3 ug/mL (10.0-40.0)
== END 2024-09-16 20:34 | disposition home or self-care (01) ==
PROVIDERS: Physician Assistant; Emergency Provider Emergency Medicine; PCP Family Medicine
DX: G40.909 Epilepsy, unspecified, not intractable, without status epilepticus (principal); Z79.899 Other long term (current) drug therapy; F80.9 Developmental disorder of speech and language, unspecified
CPT/HCPCS: 36415; 80053; 80177; 80185; 81001; 83605; 83735; 84443; 84484; 85025; 85610; 93005; 96365; 96367; 96375; 99285; J1953; J2060